=== PATIENT | male | born 1975 | race Caucasian/White ===

== ENCOUNTER 2020-11-21 12:51 | Outpatient (CLI) | payer OTHER, SELFPAY ==
--- NOTE | 2020-11-21 16:53 | WPDPFTINT ---
PFT Interpretation This is a pulmonary function test with spirometry, plethysmography and diffusing capacity. The test was performed and results interpreted in accordance with the 2019 and 2005 ATS/ERS Task Force guidelines respectively using the Faisal/Glynn reference equations. Findings: Spirometry: The contour the inspiratory and expiratory flow tracing are normal. The FVC is 4.19 L, 92% predicted. The FEV1 is 3.10 L, 89% predicted. The FEV1: FVC ratio 74%. Plethysmography the total lung capacity is 6.83 L, 111% predicted. The functional residual capacity is 2.75, 121% predicted. The residual volume is 2.21 L, 116% predicted. Diffusing capacity the absolute diffusion capacity is 25.4, 74% predicted. The diffusing capacity corrected for alveolar volume is 4.72, 113% predicted. Impression: The spirometry is normal without evidence of an obstructive abnormality. There is an isolated increase in the functional residual capacity with a normal total lung capacity. This is an abnormal but nonspecific lung volume pattern. the absolute diffusion capacity is mildly decreased but normalizes when corrected for alveolar volume. There are no prior studies for comparison
== END 2020-11-21 12:52 | disposition home or self-care (01) ==
LOC: ANHPFT 12:53
PROVIDERS: Visit Provider Internal Medicine
DX: I10 Essential (primary) hypertension (principal)
CPT/HCPCS: 94375; 94726; 94729